=== PATIENT | female | born 1970 | race Two or more races ===

== ENCOUNTER 2017-06-18 22:01 | Emergency (ER) | payer SELFPAY ==
[~2017-06-18] VITALS: Ht 167.6 cm; Wt 86.2 kg
== END 2017-06-18 23:55 | disposition home or self-care (01) ==
LOC: CED 22:01
DX: H61.21 Impacted cerumen, right ear (principal); H66.91 Otitis media, unspecified, right ear
CPT/HCPCS: 99283